=== PATIENT | female | born 1990 | race Caucasian/White ===

== ENCOUNTER 2016-12-17 19:56 | Emergency (ER) | payer MEDICAID ==
[~2016-12-17] VITALS: Ht 165.1 cm; Wt 99.1 kg
[~2016-12-17 19:56] MED LIST: CARAFATE S1 GM/10 ML PO; MACROBID 1100 MG/CAP PO; MOTRIN 600600 MG/TAB PO; PERCOCET 325 MG1 TA2 PO; VITAMIN D32000 IU PO; ZANTAC 150MG T150 MG PO
[2016-12-17 20:04] VITALS: TEMP 99.6
[2016-12-17] MEDS ORDERED: PRENATAL MVI (20:08)
[2016-12-17 23:26] LABS: BASO % 0.4 % (0.0-2.0); EOS # 0.2 (0.0-0.7); EOS % 2.1 % (0-4.0); GRAN # 6.3 (1.4-6.5); GRAN % 67.5 % (42.2-75.2); HEMOGLOBIN 13.2 g/dl (12.5-16.0); LYMPH # 2.2 (1.2-3.4); LYMPH % 23.6 % (20.0-51.0); MEAN CELL VOLUME 83 fl (80.0-100.0); MEAN CORPUSCULAR HEMOGLOBIN 27 pg (27.0-31.0); MEAN CORPUSCULAR HGB CONC 33 g/dl (33.0-37.0); MEAN PLATELET VOLUME 10.1 fl (7.4-10.4); MONO # 0.6 (0.1-0.6); MONO % 6.2 % (1.7-9.3); PLATELET COUNT 251 K/mm3 (130-400); RED BLOOD COUNT 4.85 M/mm3 (4.10-5.30); REDCELL DISTRIBUTION WIDTH-CV 13.9 % (11.5-14.5); WHITE BLOOD COUNT 9.3 K/mm3 (4.8-10.8)
[2016-12-17 23:37] LABS: CALCIUM 9.7 mg/dL (8.4-10.2); CREATININE, serum 0.71 mg/dL (0.52-1.25); POTASSIUM 4.3 mmol/L (3.4-5.0)
[2016-12-18 00:31] LABS: PH 5 (5-8); URINE APPEARANCE Hazy; URINE BACTERIA None Seen /hpf; URINE BILIRUBIN Negative (NEGATIVE); URINE BLOOD 1+ (NEGATIVE); URINE COLOR Yellow; URINE GLUCOSE Negative (NEGATIVE); URINE KETONE Negative (NEGATIVE); URINE RBC 0-2 /hpf; URINE UROBILINOGEN Negative (NEGATIVE); URINE WBC 0-2 /hpf
[2016-12-18 02:35] VITALS: BP 117/84; PULSE 103
== END 2016-12-18 02:35 | disposition home or self-care (01) ==
LOC: COL.ER 19:56
PROVIDERS: Nurse Practitioner
DX: O20.0 Threatened abortion (principal); Z3A.08 8 weeks gestation of pregnancy

== ENCOUNTER 2016-12-21 04:28 | Emergency (ER) | payer MEDICAID ==
[~2016-12-21] VITALS: Ht 165.1 cm; Wt 99.1 kg
[~2016-12-21 04:28] MED LIST changes: +PRENATAL MVI
[2016-12-21 04:33] VITALS: BP 134/73; TEMP 98.9
[2016-12-21] MEDS ORDERED: ZOFRAN 4MG T4 MG/TAB PO (08:35)
[2016-12-21 08:48] VITALS: PULSE 78
== END 2016-12-21 08:49 | disposition home or self-care (01) ==
LOC: COL.ER 04:28
DX: O03.9 Complete or unspecified spontaneous abortion without complication (principal)
CPT/HCPCS: J1170; J1885

== ENCOUNTER 2018-04-23 09:51 | Outpatient (CLI) | payer MEDICAID ==
[~2018-04-23] VITALS: Ht 165.1 cm; Wt 97.3 kg
[~2018-04-23 09:51] MED LIST changes: -CELEXA10 MG PO; -ZANTAC 150150 MG
[2018-04-23] MEDS ORDERED: ZANTAC 150150 MG (10:22)
[2018-04-23] MEDS ORDERED: CELEXA10 MG PO (10:22)
[2018-04-23 10:46] VITALS: BP 115/64; PULSE 107; TEMP 97.8
== END 2018-04-23 10:45 | disposition home or self-care (01) ==
LOC: LDRO 09:51
DX: O26.893 Other specified pregnancy related conditions, third trimester (principal); R25.2 Cramp and spasm; Z3A.28 28 weeks gestation of pregnancy

== ENCOUNTER → 2018-04-23 | Emergency (ER) | payer MEDICAID ==
[~2018-04-23] MED LIST changes: +CELEXA10 MG PO; +ZANTAC 150150 MG; +ZOFRAN 4MG T4 MG/TAB PO
== END ==
LOC: COL.ER 09:46
DX: Z72.9 Problem related to lifestyle, unspecified (principal)

== ENCOUNTER 2021-06-06 14:26 | Emergency (ER) | payer MEDICAID ==
[~2021-06-06] VITALS: Ht 165.1 cm; Wt 86.4 kg
[~2021-06-06 14:26] MED LIST changes: +CELEXA10 MG PO; +IBU800 M1 PO; +TYLENOL 500MG500 MG PO; +ZANTAC 150150 MG
[2021-06-06] MEDS ORDERED: TOPAMAX50 MG PO (15:03)
[2021-06-06] MEDS ORDERED: ZANAFLEX CAPSULE4 MG PO (15:03)
[2021-06-06] MEDS ORDERED: MAG-OX 400400 MG/TAB PO (15:04)
[2021-06-06 16:51] VITALS: BP 112/75; PULSE 78
== END 2021-06-06 16:55 | disposition home or self-care (01) ==
LOC: COL.ER 14:26
DX: G43.909 Migraine, unspecified, not intractable, without status migrainosus (principal)
CPT/HCPCS: J1200; J2765; J7030